=== PATIENT | female | born 1995 | race American Indian/Alaskan Native ===

== ENCOUNTER 2019-03-24 12:07 | Emergency (ER) | payer SELFPAY ==
--- NOTE | 2019-03-24 12:21 | Event Note ---
ED Screening Note Date of service: 03/24/19 Time: 12:19 ED Screening Note: This is a 24 y.o. F. that presents with pelvic pain and nausea x 1 week. LMP 02/21/2019 Negative home test. This initial assessment/diagnostic orders/clinical plan/treatment(s) is/are subject to change based on patients health status, clinical progression and re- assessment by fellow clinical providers in the ED. Further treatment and workup at subsequent clinical providers discretion. Patient/guardian urged not to elope from the ED as their condition may be serious if not clinically assessed and managed. Initial orders include: Labs
--- NOTE | 2019-03-24 12:38 | Emergency Department Report ---
ED Dysuria HPI - HPI Chief Complaint: Abdominal Pain Stated Complaint: N/STOMACH PAIN Time Seen by Provider: 03/24/19 12:18 Duration: 2 Days Severity: None Symptoms: Dysuria: No, Frequency: No, Suprapubic Pain: No, Flank Pain: No, Fever: No, Hematuria: No, Abdominal Pain: No, Previous UTI's: No Other History: 24 YO HERE DUE TO IRREGULAR MENSES AND CONCERNED SHE IS PREG. SHE HAS NOT TAKEN HOME PREG TEST BECAUSE PER PT WHEN SHE WAS PREG BEFORE SHE NEVER HAD A POS URINE PREG TEST. SHE STATES THIS RUNS IN HER FAMILY. NO VAG BLEED OR DC. NO ABD PAIN. NO DYSURIA OR BACK PAIN. NO FEVER OR CHILLS ED Review of Systems ROS: Stated complaint: N/STOMACH PAIN Other details as noted in HPI Comment: All other systems reviewed and negative ED Past Medical Hx - Past Medical History Previous Medical History?: No Additional medical history: . LMP: 01/06/2015 - Surgical History Past Surgical History?: Yes Additional Surgical History: - Family History Family history: no significant - Social History Smoking Status: Never Smoker Substance Use Type: None - Medications Home Medications: Home Medications Medication Instructions Recorded Confirmed Last Taken Type Sulfamethoxazole/Trimethoprim 1 each PO BID #14 tablet 11/11/15 Unknown Rx [Bactrim DS TAB] cephALEXin [Keflex] 500 mg PO Q6HR #28 capsule 11/11/15 Unknown Rx traMADol [Ultram] 50 mg PO Q6HR PRN #15 tablet 11/11/15 Unknown Rx Dysuria Exam - Exam General: Vital signs noted. No distress. Alert and acting appropriately. Exam: Yes Moist Mucous Membranes, No CVA Tenderness, No Abdominal Tenderness, No Rigidity or Guarding Exam: ED Course Vital Signs 03/24/19 12:18 Temperature 98.3 F Pulse Rate 93 H Respiratory 16 Rate Blood Pressure 115/63 O2 Sat by Pulse 97 Oximetry ED Medical Decision Making - Lab Data Result diagrams: 03/24/19 12:43 03/24/19 12:43 - Medical Decision Making Labs 03/24/19 03/24/19 03/24/19 12:32 12:43 12:43 WBC 5.0 RBC 3.87 Hgb 10.5 Hct 32.6 MCV 84 MCH 27 L MCHC 32 RDW 17.4 H Plt Count 307 Lymph % (Auto) 30.8 [place] % (Auto) 8.5 H Eos % (Auto) 4.2 Baso % (Auto) 2.2 H Lymph # 1.5 [place] # 0.4 Eos # 0.2 Baso # 0.1 Seg Neutrophils % 54.3 Seg Neutrophils # 2.7 Sodium 142 Potassium 4.2 Chloride 105.5 Carbon Dioxide 26 Anion Gap 15 BUN 7 Creatinine 0.7 Estimated GFR > 60 BUN/Creatinine Ratio 10 Glucose 95 Calcium 9.2 Total Bilirubin 0.40 AST 22 ALT 17 Alkaline Phosphatase 39 Total Protein 7.3 Albumin 4.4 Albumin/Globulin Ratio 1.5 HCG, Qual Urine Color Yellow Urine Turbidity Clear Urine pH 7.0 Ur Specific [place] 1.013 Urine Protein <15 mg/dl Urine Glucose (UA) Neg Urine Ketones Neg Urine Blood Neg Urine Nitrite Neg Urine Bilirubin Neg Urine Urobilinogen < 2.0 Ur Leukocyte Esterase Neg Urine WBC (Auto) < 1.0 Urine RBC (Auto) 1.0 U Epithel Cells (Auto) 1.0 Urine Mucus Few Urine HCG, Qual Negative 03/24/19 12:43 WBC RBC Hgb Hct MCV MCH MCHC RDW Plt Count Lymph % (Auto) [place] % (Auto) Eos % (Auto) Baso % (Auto) Lymph # [place] # Eos # Baso # Seg Neutrophils % Seg Neutrophils # Sodium Potassium Chloride Carbon Dioxide Anion Gap BUN Creatinine Estimated GFR BUN/Creatinine Ratio Glucose Calcium Total Bilirubin AST ALT Alkaline Phosphatase Total Protein Albumin Albumin/Globulin Ratio HCG, Qual Negative Urine Color Urine Turbidity Urine pH Ur Specific [place] Urine Protein Urine Glucose (UA) Urine Ketones Urine Blood Urine Nitrite Urine Bilirubin Urine Urobilinogen Ur Leukocyte Esterase Urine WBC (Auto) Urine RBC (Auto) U Epithel Cells (Auto) Urine Mucus Urine HCG, Qual Vital Signs 03/24/19 12:18 Temperature 98.3 F Pulse Rate 93 H Respiratory 16 Rate Blood Pressure 115/63 O2 Sat by Pulse 97 Oximetry PREG NEG IN SERUM/URINE PT DC HOME WITH OBGYN FOLLOW UP - Differential Diagnosis RO PREG Critical care attestation.: If time is entered above; I have spent that time in minutes in the direct care of this critically ill patient, excluding procedure time. ED Disposition Clinical Impression: Negative test, Irregular menses Disposition: DC- TO HOME OR SELFCARE Is pt being admited?: No Does the pt Need Aspirin: No Condition: Stable Instructions: Dysmenorrhea (ED) Referrals: PRIMARY CARE, [Primary Care Provider] - 3-5 Days PAUL KUMARI MD [Staff Physician] - 3-5 Days Time of Disposition: 13:43
[2019-03-24 12:56] LABS: Bilirubin,Urine NEG (Negative); Blood,Urine NEG (Negative); Color,Urine Yellow (Yellow); Mucus,Urine FEW /HPF; Protein,Urine <15 mg/dL mg/dL (Negative); Urobilinogen,Urine < 2.0 mg/dL (<2.0); WBC,Urine < 1.0 /HPF (0.0-6.0)
[2019-03-24 13:27] LABS: HCG Qualitative,Urine Negative (Negative)
[2019-03-24 13:31] LABS: Alanine Aminotransferase 17 units/L (7-56); Albumin 4.4 g/dL (3.9-5); BUN/Creatinine Ratio 10; Blood Urea Nitrogen 7 mg/dL (7-17); Calcium 9.2 mg/dL (8.4-10.2); Hemolysis Index 3
[2019-03-24 13:33] LABS: Basophils # (Auto) 0.1 K/mm3 (0.0-0.1); Basophils % (Auto) 2.2 % (0.0-1.8); Eosinophils # (Auto) 0.2 K/mm3 (0.0-0.4); Eosinophils % (Auto) 4.2 % (0.0-4.3); Hematocrit 32.6 % (30.3-42.9); Hemoglobin 10.5 gm/dl (10.1-14.3); Lymphocytes # (Auto) 1.5 K/mm3 (1.2-5.4); Lymphocytes % (Auto) 30.8 % (13.4-35.0); Mean Corpuscular HGB Conc 32 % (30-34); Mean Corpuscular Volume 84 fl (79-97); Monocytes # (Auto) 0.4 K/mm3 (0.0-0.8); Monocytes % (Auto) 8.5 % (0.0-7.3); Platelet Count 307 K/mm3 (140-440); Red Blood Count 3.87 M/mm3 (3.65-5.03); Red Cell Distribution Width 17.4 % (13.2-15.2)
[2019-03-24 14:23] VITALS: BP 103/44
== END 2019-03-24 14:22 | disposition home or self-care (01) ==
LOC: ED 12:07
DX: N92.6 Irregular menstruation, unspecified (principal); Z32.02 Encounter for pregnancy test, result negative
CPT/HCPCS: 36415; 80053; 81001; 81025; 84703; 85025

== ENCOUNTER 2019-05-07 17:39 | Emergency (ER) | payer SELFPAY ==
--- NOTE | 2019-05-07 17:51 | Event Note ---
ED Screening Note ED Screening Note: right ear pain that began last night right sided sore throat KAY body aches nausea and one episode of emesis this morning no sick contacts no pmhx no allergies to meds
[2019-05-07 17:53] VITALS: BP 145/72
--- NOTE | 2019-05-07 17:57 | Emergency Department Report ---
- General Chief Complaint: Upper Respiratory Infection Stated Complaint: FLU LIKE SYMPTOMS Time Seen by Provider: 05/07/19 17:48 Source: patient Mode of arrival: Ambulatory Limitations: No Limitations - History of Present Illness Initial Comments: pt is a 24 yo female who presents to the ED with c/o right ear pain that began last night. she has associated right sided sore throat, KAY, body aches nausea and one episode of emesis this morning. she denies any sick contacts. pt denies any abd pain, SOB, productive cough. no pmhx. no allergies to meds. - Related Data Previous Rx's Medication Instructions Recorded Last Taken Type Sulfamethoxazole/Trimethoprim 1 each PO BID #14 tablet 11/11/15 Unknown Rx [Bactrim DS TAB] cephALEXin [Keflex] 500 mg PO Q6HR #28 capsule 11/11/15 Unknown Rx traMADol [Ultram] 50 mg PO Q6HR PRN #15 tablet 11/11/15 Unknown Rx Amoxicillin [Amoxicillin TAB] 875 mg PO BID 10 Days #20 tablet 05/07/19 Unknown Rx Allergies Allergy/AdvReac Type Severity Reaction Status Date / Time latex Allergy Rash Verified 03/24/19 12:09 ED Review of Systems ROS: Stated complaint: FLU LIKE SYMPTOMS Other details as noted in HPI Comment: All other systems reviewed and negative ED Past Medical Hx - Past Medical History Previous Medical History?: No Additional medical history: . LMP: 01/06/2015 - Surgical History Past Surgical History?: Yes Additional Surgical History: - Social History Smoking Status: Current Some Day Smoker Substance Use Type: None - Medications Home Medications: Home Medications Medication Instructions Recorded Confirmed Last Taken Type Sulfamethoxazole/Trimethoprim 1 each PO BID #14 tablet 11/11/15 Unknown Rx [Bactrim DS TAB] cephALEXin [Keflex] 500 mg PO Q6HR #28 capsule 11/11/15 Unknown Rx traMADol [Ultram] 50 mg PO Q6HR PRN #15 tablet 11/11/15 Unknown Rx Amoxicillin [Amoxicillin TAB] 875 mg PO BID 10 Days #20 tablet 05/07/19 Unknown Rx ED Physical Exam - General Limitations: No Limitations General appearance: alert, in no apparent distress - Head Head exam: Present: atraumatic, normocephalic - Eye Eye exam: Present: normal appearance, PERRL, EOMI - ENT ENT exam: Present: normal orophraynx, mucous membranes moist, other (right TM is erythematous with purulence present behind the TM, TM is intact bilaterally no perforation, normal left TM and canal ) - Respiratory Respiratory exam: Present: normal lung sounds bilaterally. Absent: respiratory distress, wheezes, rales, rhonchi, stridor, chest wall tenderness, accessory muscle use, decreased breath sounds, prolonged expiratory - Cardiovascular Cardiovascular Exam: Present: normal rhythm, tachycardia (mild), normal heart sounds. Absent: systolic murmur, diastolic murmur, rubs, gallop - Neurological Exam Neurological exam: Present: alert, oriented X3 - Psychiatric Psychiatric exam: Present: normal affect, normal mood - Skin Skin exam: Present: warm, dry, intact ED Course Vital Signs 05/07/19 05/07/19 17:48 18:00 Temperature 99.6 F 99.6 F Pulse Rate 107 H 107 H Respiratory 18 18 Rate Blood Pressure 145/72 O2 Sat by Pulse 97 97 Oximetry ED Medical Decision Making - Medical Decision Making pt is a 24 yo female who presents to the ED with c/o right ear pain that began last night. she has associated right sided sore throat, KAY, body aches nausea and one episode of emesis this morning. she denies any sick contacts. pt denies any abd pain, SOB, productive cough. no pmhx. no allergies to meds. vitals with mild tachycardia otherwise stable. on exam: right TM is erythematous with purulence present behind the TM, TM is intact bilaterally no perforation, normal left TM and canal, oropharynx is normal, no tonsillar hypertrophy or exudates, breath sounds are clear bilaterally without w/r/r. examination consistent with otitis media. pt given prescription for amoxicillin. advised pt to please take medication as prescribed to completion. increase your fluid intake over the next several days. drink warm soup broth, use warm salt water gargles, humidifier. may take tylenol or ibuprofen for any discomfort. follow up with a primary care doctor in 3 days for ear reexamination. return to the emergency room for any new or worsening symptoms. - Differential Diagnosis otitis media, otitis externa, PNA, URI, pharyngitis, tonsillitis, virus Critical care attestation.: If time is entered above; I have spent that time in minutes in the direct care of this critically ill patient, excluding procedure time. ED Disposition Clinical Impression: Otitis media Qualifiers: Otitis media type: suppurative Chronicity: acute Laterality: right Recurrence: non-recurrent Spontaneous tympanic membrane rupture: without spontaneous rupture Qualified Code(s): H66.001 - Acute suppurative otitis media without spontaneous rupture of ear drum, right ear Disposition: DC- TO HOME OR SELFCARE Is pt being admited?: No Does the pt Need Aspirin: No Condition: Stable Instructions: Otitis Media (ED) Additional Instructions: please take medication as prescribed to completion. increase your fluid intake over the next several days. drink warm soup broth, use warm salt water gargles, humidifier. may take tylenol or ibuprofen for any discomfort. follow up with a primary care doctor in 3 days for ear reexamination. return to the emergency room for any new or worsening symptoms. Prescriptions: Amoxicillin [Amoxicillin TAB] 875 mg PO BID 10 Days #20 tablet Referrals: [facility] [Provider Group] - 2-3 Days [facility] [Outside] - 2-3 Days [facility] [Outside] - 2-3 Days Time of Disposition: 17:54 Print Language: MOZAMBICAN
== END 2019-05-07 18:07 | disposition home or self-care (01) ==
LOC: ED 17:39
DX: H66.91 Otitis media, unspecified, right ear (principal); F17.200 Nicotine dependence, unspecified, uncomplicated; Z91.040 Latex allergy status

== ENCOUNTER 2022-01-17 00:18 | Emergency (ER) | payer MEDICAID ==
[2022-01-17 02:24] VITALS: BP 102/56
[2022-01-17 03:22] LABS: Basophils # (Auto) 0.1 K/mm3 (0.0-0.1); Basophils % (Auto) 0.4 % (0.0-1.8); Eosinophils # (Auto) 0.1 K/mm3 (0.0-0.4); Eosinophils % (Auto) 0.5 % (0.0-4.3); Hematocrit 32.6 % (30.3-42.9); Hemoglobin 10.3 gm/dl (10.1-14.3); Lymphocytes # (Auto) 1.1 K/mm3 (1.2-5.4); Lymphocytes % (Auto) 8.5 % (13.4-35.0); Mean Corpuscular HGB Conc 32 % (30-34); Mean Corpuscular Volume 85 fl (79-97); Monocytes % (Auto) 7.7 % (0.0-7.3); Platelet Count 309 K/mm3 (140-440); Red Blood Count 3.83 M/mm3 (3.65-5.03); Red Cell Distribution Width 18.3 % (13.2-15.2)
[2022-01-17 03:42] LABS: Alanine Aminotransferase 11 units/L (7-56); Albumin 4.2 g/dL (3.9-5); BUN/Creatinine Ratio 9; Blood Urea Nitrogen 7 mg/dL (7-17); Calcium 9.2 mg/dL (8.4-10.2); Hemolysis Index 2
[2022-01-17] MEDS ORDERED: SODIUM CHLORIDE 0.9% 1000 ML 1,000 ML IV ONE (08:41)
--- NOTE | 2022-01-17 09:30 | Emergency Department Report ---
ED Abdominal Pain HPI - General Chief Complaint: Abdominal Pain Stated Complaint: ABD PAIN Time Seen by Provider: 01/17/22 08:40 Source: patient Mode of arrival: Ambulatory Limitations: No Limitations - History of Present Illness Initial Comments: Patient 26-year-old female who presents for bilateral lower abdominal pain for 4 days. Patient states nausea and vomiting chills. Patient denies vaginal discharge. There is bilateral flank pain however. Symptoms are exacerbated by p.o. intake and movement. Symptoms are relieved by nothing tried. She denies history of special cycle 1 week ago, Complaint: abdominal pain, flank pain - Related Data Previous Rx's Medication Instructions Recorded Last Taken Type Sulfamethoxazole/Trimethoprim 1 each PO BID #14 tablet 11/11/15 Unknown Rx [Bactrim DS TAB] cephALEXin [Keflex] 500 mg PO Q6HR #28 capsule 11/11/15 Unknown Rx traMADoL [Ultram] 50 mg PO Q6HR PRN #15 tablet 11/11/15 Unknown Rx Amoxicillin [Amoxicillin TAB] 875 mg PO BID 10 Days #20 tablet 05/07/19 Unknown Rx cephALEXin [Keflex] 500 mg PO BID 7 Days #14 cap 01/17/22 Unknown Rx metroNIDAZOLE [Flagyl] 500 mg PO BID 7 Days #14 tab 01/17/22 Unknown Rx Allergies Allergy/AdvReac Type Severity Reaction Status Date / Time latex Allergy Rash Verified 03/24/19 12:09 ED Review of Systems ROS: Stated complaint: ABD PAIN Other details as noted in HPI Constitutional: denies: chills, fever Eyes: denies: eye pain, eye discharge, vision change ENT: denies: ear pain, throat pain Respiratory: denies: cough, shortness of breath, wheezing Cardiovascular: denies: chest pain, palpitations Endocrine: no symptoms reported Gastrointestinal: abdominal pain, nausea, vomiting. denies: diarrhea, constipation, melena Genitourinary: denies: urgency, dysuria, frequency, hematuria, discharge, abnormal menses Musculoskeletal: back pain Skin: denies: rash, lesions Neurological: denies: headache, weakness, paresthesias, vertigo Psychiatric: denies: anxiety, depression Hematological/Lymphatic: denies: easy bleeding, easy bruising ED Past Medical Hx - Past Medical History Additional medical history: . LMP: 01/06/2015 - Surgical History Additional Surgical History: - Social History Smoking Status: Current Some Day Smoker Substance Use Type: None - Medications Home Medications: Home Medications Medication Instructions Recorded Confirmed Last Taken Type Sulfamethoxazole/Trimethoprim 1 each PO BID #14 tablet 11/11/15 Unknown Rx [Bactrim DS TAB] cephALEXin [Keflex] 500 mg PO Q6HR #28 capsule 11/11/15 Unknown Rx traMADoL [Ultram] 50 mg PO Q6HR PRN #15 tablet 11/11/15 Unknown Rx Amoxicillin [Amoxicillin TAB] 875 mg PO BID 10 Days #20 tablet 05/07/19 Unknown Rx cephALEXin [Keflex] 500 mg PO BID 7 Days #14 cap 01/17/22 Unknown Rx metroNIDAZOLE [Flagyl] 500 mg PO BID 7 Days #14 tab 01/17/22 Unknown Rx ED Physical Exam - General Limitations: No Limitations General appearance: alert, in no apparent distress - Head Head exam: Present: normocephalic, normal inspection - Eye Eye exam: Present: EOMI Pupils: Present: normal accommodation - ENT ENT exam: Present: mucous membranes moist - Neck Neck exam: Present: normal inspection, full ROM. Absent: tenderness, lymphadenopathy - Respiratory Respiratory exam: Present: normal lung sounds bilaterally, chest wall tenderness. Absent: respiratory distress, wheezes - Cardiovascular Cardiovascular Exam: Present: regular rate, normal rhythm, normal heart sounds. Absent: systolic murmur, diastolic murmur, rubs, gallop - GI/Abdominal GI/Abdominal exam: Present: tenderness, guarding (Mild right lower quadrant), rebound, hyperactive bowel sounds. Absent: distended, rigid, bruit, hernia - Expanded GI/Abdominal Exam Expanded GI/Abdominal exam: Present: psoas sign, obturator sign, heel tap sign, Rovsing's sign, tenderness at [place]bur[place]'s Point. Absent: Tsang's sign, ascites - Rectal Rectal exam: Present: deferred - Extremities Exam Extremities exam: Present: normal inspection, full ROM, normal capillary refill. Absent: tenderness - Back Exam Back exam: Present: normal inspection, full ROM, CVA tenderness (R), CVA tenderness (L) - Neurological Exam Neurological exam: Present: alert, oriented X3, CN II-XII intact, normal gait - Psychiatric Psychiatric exam: Present: normal affect, normal mood - Skin Skin exam: Present: warm, dry, intact, normal color. Absent: rash ED Course Vital Signs 01/17/22 01:53 Temperature 99.7 F H Pulse Rate 80 Respiratory 18 Rate Blood Pressure 102/56 O2 Sat by Pulse 96 Oximetry ED Medical Decision Making - Lab Data Result diagrams: 01/17/22 03:06 01/17/22 03:06 Labs 01/17/22 01/17/22 01/17/22 03:06 03:06 03:06 WBC 13.3 H RBC 3.83 Hgb 10.3 Hct 32.6 MCV 85 MCH 27 L MCHC 32 RDW 18.3 H Plt Count 309 Lymph % (Auto) 8.5 L [place] % (Auto) 7.7 H Eos % (Auto) 0.5 Baso % (Auto) 0.4 Lymph # (Auto) 1.1 L [place] # (Auto) 1.0 H Eos # (Auto) 0.1 Baso # (Auto) 0.1 Seg Neutrophils % 82.9 H Seg Neutrophils # 11.0 H Sodium 139 Potassium 3.4 L Chloride 104.1 Carbon Dioxide 22 Anion Gap 16 BUN 7 Creatinine 0.8 Estimated GFR > 60 BUN/Creatinine Ratio 9 Glucose 99 Calcium 9.2 Total Bilirubin 0.90 AST 14 ALT 11 Alkaline Phosphatase 50 Total Protein 7.5 Albumin 4.2 Albumin/Globulin Ratio 1.3 Lipase 10 L HCG, Qual Negative Urine Color Urine Turbidity Urine pH Ur Specific [place] Urine Protein Urine Glucose (UA) Urine Ketones Urine Blood Urine Nitrite Urine Bilirubin Urine Urobilinogen Ur Leukocyte Esterase Urine WBC (Auto) Urine RBC (Auto) U Epithel Cells (Auto) Urine Bacteria (Auto) Urine Mucus 01/17/22 01/17/22 Unknown Unknown WBC RBC Hgb Hct MCV MCH MCHC RDW Plt Count Lymph % (Auto) [place] % (Auto) Eos % (Auto) Baso % (Auto) Lymph # (Auto) [place] # (Auto) Eos # (Auto) Baso # (Auto) Seg Neutrophils % Seg Neutrophils # Sodium Potassium Chloride Carbon Dioxide Anion Gap BUN Creatinine Estimated GFR BUN/Creatinine Ratio Glucose Calcium Total Bilirubin AST ALT Alkaline Phosphatase Total Protein Albumin Albumin/Globulin Ratio Lipase 14 HCG, Qual Urine Color [place] Urine Turbidity Slightly-cloudy Urine pH 6.0 Ur Specific [place] 1.034 H Urine Protein 100 mg/dl Urine Glucose (UA) Neg Urine Ketones 20 Urine Blood Mod Urine Nitrite Neg Urine Bilirubin Neg Urine Urobilinogen 4.0 Ur Leukocyte Esterase Mod Urine WBC (Auto) 66.0 H Urine RBC (Auto) > 182.0 U Epithel Cells (Auto) 7.0 Urine Bacteria (Auto) 1+ Urine Mucus 3+ - Radiology Data Radiology results: report reviewed, image reviewed CT ABDOMEN AND PELVIS WITH CONTRAST INDICATION / CLINICAL INFORMATION: Unspecified abdominal pain. OMNIPAQUE [id number] . TECHNIQUE: Axial CT images were obtained through the abdomen and pelvis after IV contrast. All CT scans at this location are performed using CT dose reduction for ALARA by means of automated exposure control. COMPARISON: No relevant prior imaging study available. FINDINGS: LOWER CHEST: No significant abnormality. LIVER: No significant abnormality. GALLBLADDER: No significant abnormality. BILE DUCTS: No significant abnormality. PANCREAS: No significant abnormality. SPLEEN: No significant abnormality. ADRENALS: No significant abnormality. RIGHT KIDNEY/URETER: Multiple simple cysts are seen along the right kidney including a midpole cyst measuring up to 1.3 cm. No other significant abnormality. LEFT KIDNEY/URETER: There is a simple appearing lower pole cyst measuring up to 1.6 cm. No other significant abnormality. STOMACH/SMALL BOWEL: No significant abnormality. COLON: No significant abnormality. APPENDIX: No significant abnormality. PERITONEUM: No free fluid. No free air. No fluid collection. LYMPH NODES: No significant adenopathy. VASCULATURE: No significant abnormality. URINARY BLADDER: No significant abnormality. REPRODUCTIVE ORGANS: No significant abnormality. ADDITIONAL FINDINGS: None. BONES: No significant abnormality IMPRESSION: 1. No significant abnormality to explain the patient's pain. Signer Name: Herrera Lawson MD Signed: 01/17/2022 10:15 AM Workstation Name: [id number] Transcribed By: WILMAR Dictated By: Herrera Lawson MD Electronically Authenticated By: Herrera Lawson MD Signed Date/Time: 01/17/22 1015 DD/ 1012 TD/TT: - Medical Decision Making Labs noted above UA noted above, CT abdomen pelvis noted above. Plan treat for UTI, patient will be DC'd home with prescriptions. Patient will continue to hydrate as directed patient currently tolerating p.o. intake without nausea or vomiting. Patient denies STI symptoms. Patient's partner with patient also denies STI symptoms. Patient denies pelvic pain, no vaginal discharge Critical care attestation.: If time is entered above; I have spent that time in minutes in the direct care of this critically ill patient, excluding procedure time. ED Disposition Clinical Impression: UTI (urinary tract infection) Qualifiers: Urinary tract infection type: acute cystitis Hematuria presence: without hematuria Qualified Code(s): N30.00 - Acute cystitis without hematuria Disposition: HOME / SELF CARE / HOMELESS Is pt being admited?: No Does the pt Need Aspirin: No Condition: Stable Instructions: Abdominal Pain (ED), Urinary Tract Infection, Adult Additional Instructions: Do not drink alcohol with this medication. Take medication as prescribed, follow-up with your doctor in 2 to 3 days. Return to emergency department shoul d symptoms worsen. Prescriptions: metroNIDAZOLE [Flagyl] 500 mg PO BID 7 Days #14 tab cephALEXin [Keflex] 500 mg PO BID 7 Days #14 cap Referrals: [facility] [Provider Group] - 3-5 Days Forms: Work/School Release Form(ED) Time of Disposition: 11:38
--- NOTE | 2022-01-17 10:19 | Cat Scan Report ---
CT ABDOMEN AND PELVIS WITH CONTRAST INDICATION / CLINICAL INFORMATION: Unspecified abdominal pain. OMNIPAQUE [id number] . TECHNIQUE: Axial CT images were obtained through the abdomen and pelvis after IV contrast. All CT scans at this location are performed using CT dose reduction for ALARA by means of automated exposure control. COMPARISON: No relevant prior imaging study available. FINDINGS: LOWER CHEST: No significant abnormality. LIVER: No significant abnormality. GALLBLADDER: No significant abnormality. BILE DUCTS: No significant abnormality. PANCREAS: No significant abnormality. SPLEEN: No significant abnormality. ADRENALS: No significant abnormality. RIGHT KIDNEY/URETER: Multiple simple cysts are seen along the right kidney including a midpole cyst m easuring up to 1.3 cm. No other significant abnormality. LEFT KIDNEY/URETER: There is a simple appearing lower pole cyst measuring up to 1.6 cm. No other sign ificant abnormality. STOMACH/SMALL BOWEL: No significant abnormality. COLON: No significant abnormality. APPENDIX: No significant abnormality. PERITONEUM: No free fluid. No free air. No fluid collection. LYMPH NODES: No significant adenopathy. VASCULATURE: No significant abnormality. URINARY BLADDER: No significant abnormality. REPRODUCTIVE ORGANS: No significant abnormality. ADDITIONAL FINDINGS: None. BONES: No significant abnormality IMPRESSION: 1. No significant abnormality to explain the patient's pain. Signer Name: Herrera Lawson MD Signed: 01/17/2022 10:15 AM Workstation Name: [id number]
[2022-01-17] MEDS ORDERED: ONDANSETRON 4 MG/2 ML INJ IV ONE (10:41)
[2022-01-17] MEDS ORDERED: MORPHINE 4 MG/1 ML INJ IV ONE (10:41)
[2022-01-17 11:07] LABS: Bilirubin,Urine NEG (Negative); Blood,Urine MOD (Negative); Color,Urine Amber (Yellow)
[2022-01-17 11:14] LABS: Bacteria,Urine 1+ /HPF (Negative); Mucus,Urine 3+ /HPF
[2022-01-17 11:15] LABS: RBC,Urine > 182.0 /HPF (0.0-6.0)
[2022-01-17] MEDS ORDERED: cefTRIAXone/NS 1 GM/50 ML 1 GM/50 ML BAG IV ONE (11:30)
[2022-01-17] MEDS ORDERED: AZITHROMYCIN 250 MG TAB PO ONE (11:30)
[2022-01-17] MEDS ORDERED: LORazepam 2 MG/ML VIAL ONE (11:56)
== END 2022-01-17 12:40 | disposition home or self-care (01) ==
LOC: ED 00:18
DX: N39.0 Urinary tract infection, site not specified (principal); F17.200 Nicotine dependence, unspecified, uncomplicated; Z91.040 Latex allergy status
CPT/HCPCS: 36415; 74177; 80053; 81001; 83690; 84703; 85025; 87086; 96361; 96365; 96375; 99284; J0696; J2060; J2270; J2405; J7030; Q9967